=== PATIENT | male | born 1955 | race Caucasian/White ===

== ENCOUNTER 2024-06-20 09:12 | Outpatient (REF) | payer MEDICARE, BC, SELFPAY | END 2024-06-20 09:13 | disposition home or self-care (01) | LOC: HO.LNP 09:12 | PROVIDERS: PCP Internal Medicine; Visit Provider Physician Assistant | DX: Z13.89 Encounter for screening for other disorder (principal) | CPT/HCPCS: 87880; 99202 ==

== ENCOUNTER 2024-06-20 09:12 | Outpatient (AMB) | payer MEDICARE, BC, SELFPAY ==
--- NOTE | 2024-06-20 09:21 | AM.OFFWIN_ITS ---
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 - Upper Respiratory Infection symptoms b olga lidia four days ago, including headaches, sore throat, and cough. - Patient experienced a maximum recorded fever of 100?F but no chills, nausea, vomiting, or diarrhea. - There is a noted difficulty in achievi ng restful sleep due to persistent coughing. - Absence of pulmonary conditions such a s COPD, asthma or a history of smoking. - He has experienced occasional ear infe ctions in the past during his younger years. - Reports difficulty in maintaining prop er hydration and nutrition. - His son exhibits early signs of simila r illness. Physical Exam General: Cooperative, healthy appearing, comfortable and no acute distress Orientation/consciousness: Patient oriented x3 Limitations: No limitations Head: Normal to inspection Ears: Hearing grossly normal bilaterally, external ears, TM's small purulent effusions bilaterally with erythema and slight bulging Nose: Normal external nose present, Normal nares present and No nasal discharge present Face and sinus: Normal facial exam and Yes sinuses nontender Mouth: Normal oral and palatal mucosa present and moist mucous membranes Throat: Yes tonsils normal, Yes uvula midline. Posterior oropharynx erythema Eyes: Appearance normal, both eyes and all related structures Neck: Normal visual inspection Respiratory: Clear to auscultation bilaterally. Normal respiratory effort, able to speak in complete sentences, Actively coughing, no respiratory distress, not tachypneic, no tripod positioning and no use of accessory muscles Cardiovascular: Regular rate and rhythm. Normal S1 and S2 Skin: No rashes or lesions noted Neuro: Patient oriented x3 Extremities: Normal to inspection and Yes no clubbing, cyanosis or edema Review of Systems Const All systems reviewed & are unremarkable except as noted in HPI and below Physical Exam Vital Signs: Last Vital Signs Temp 97.5 F 06/20/24 09:22 Pulse 89 06/20/24 09:22 BP 112/80 06/20/24 09:22 Pulse Ox 98 06/20/24 09:22 Oxygen Delivery Method Room Air 06/20/24 09:22 BMI result Body Mass Index 37.3 Assessment & Plan Assessment & Plan (1) Otitis media: Code(s): H66.90 - Otitis media, unspecified, unspecified ear Qualifiers: Otitis media type: suppurative Chronicity: acute Laterality: bilateral Recurrence: non-recurrent Spontaneous tympanic membrane rupture: without spontaneous rupture Qualified Code(s): H66.003 - Acute suppurative otitis media without spontaneous rupture of ear drum, bilateral Plan: Rapid strep in office is negative. During the consultation, I focused on the patient's symptoms consistent with an Upper Respiratory Infection and apparent signs of early bilateral Otitis Media. Diagnostic testing has been initiated to exclude COVID-19, Influenza, and RSV as possible etiologies. Considering the ear presentation, an antibiotic regimen of amoxicillin was prescribed to treat the suspected bacterial nature of the ear infection. For nighttime cough control, I have prescribed Tessalon Perles and suggested the use of Mucinex to manage daytime symptoms. I emphasized the importance of maintaining proper hydration despite the reduced appetite and current feverish state. The patient has been informed about the medication pickup procedures and has agreed to follow the outlined plan. Patient was informed and verbally consented to the use of an ambient scribe for clinic note documentation during this visit (2) URI, acute: Code(s): J06.9 - Acute upper respiratory infection, unspecified Plan: as above Medications: New amoxicillin 875 mg PO Q12H 10 tabs 0RF benzonatate 200 mg PO TID PRN 14 caps 0RF cough Coding Level of Care Code New Pt Level 4 (79765) Diagnoses Non-recurrent acute suppurative otitis media of both ears without spontaneous rupture of tympanic membranes H66.003 Otitis media type: suppurative Chronicity: acute Laterality: bilateral Recurrence: non-recurrent Spontaneous tympanic membrane rupture: without spontaneous rupture URI, acute J06.9
[2024-06-20 09:22] VITALS: BP 112/80; PULSE 89; TEMP 36.4; O2SAT 98; BMI 37.3
== END 2024-06-20 09:57 | disposition home or self-care (01) ==
PROVIDERS: PCP Internal Medicine; Visit Provider Physician Assistant
DX: H66.003 Acute suppurative otitis media without spontaneous rupture of ear drum, bilateral (principal); J06.9 Acute upper respiratory infection, unspecified; Z13.9 Encounter for screening, unspecified

== ENCOUNTER 2024-06-20 13:28 | Outpatient (REF) | payer MEDICARE, BC, SELFPAY ==
[2024-06-20 14:23] LABS: Influenza A PCR NEGATIVE (Negative); Influenza B PCR NEGATIVE (Negative); Resp Syncy Virus RNA Qual PCR POSITIVE (Negative); SARS COV2 PCR INHOUSE NEGATIVE (Negative)
== END 2024-06-20 13:29 | disposition home or self-care (01) ==
LOC: HO.LAB 13:28
PROVIDERS: Visit Provider Physician Assistant
DX: J06.9 Acute upper respiratory infection, unspecified (principal); H66.003 Acute suppurative otitis media without spontaneous rupture of ear drum, bilateral
CPT/HCPCS: 0241U; 87880; 99202

== ENCOUNTER 2024-09-05 08:04 | Outpatient (AMB) | payer MEDICARE, BC, SELFPAY ==
[2024-09-05 08:13] VITALS: BP 146/80; PULSE 80; RESP 18; TEMP 36.8; O2SAT 97; BMI 39.5
--- NOTE | 2024-09-05 08:13 | MHC.OFFWIV ---
Intake Vital Signs 09/05/24 08:13 Height 6 ft Weight 291 lb BMI 39.5 BP 146/80 H Blood Pressure Location Lt brachial Position Sitting Respiration 18 Pulse 80 Pulse Source Pulse Oximeter Temp 98.2 F Temp Source Oral Pulse Oximetry (%) 97 Oxygen Delivery Method Room Air Intake Visit Reasons: EP Back pain Intake Note: pt is here for her c.o lower left back pain due to lifting weights since 4days Patient Tobacco Use Status: Never used Tobacco Accompanied by: Self / Same As Patient Allergies No Known Allergies Allergy (Verified 09/05/24 08:13) Do you need a note to return to daycare/school/sports/work: No HPI HPI Comments History of Present Illness Details This is a 69-year-old male with past medical history of hypertension, hyperlipidemia, [id number] diabetes presenting for evaluation of left-sided low back pain that he has had for the past 4 days. Patient states he was moving heavy weights in his basement through a doorway when he twisted while holding weights in both hands. Patient states he was curling utilizing his biceps muscles thereafter and noted pain in his left low back since that time. Patient used an [id number] pain patch x1 without relief of his discomfort. Patient describes his pain as an aching sensation that does not radiate into his buttock, lower extremity, flank or abdomen. PFSH Social History Patient Tobacco Use Status: Never used Tobacco Review of Systems Const All systems reviewed & are unremarkable except as noted in HPI and below Reports no additional complaints Eyes Reports no additional complaints ENT Reports no additional complaints Card Reports no additional complaints Resp Reports no additional complaints GI Reports no additional complaints Reports no additional complaints, Denies dysuria, Denies flank pain and Denies urinary urgency Musc Reports back pain (left low back pain) Skin/Breast Reports system reviewed and no additional complaints, except as documented Neuro Reports no additional complaints Psych Reports no additional complaints Endo Reports no additional complaints Krzysztof/Lymph Reports no additional complaints Aller/Immun Reports no additional complaints Physical Exam Vital Signs: BMI result Body Mass Index 39.5 Const General: cooperative, comfortable, well developed, alert, awake and Physically active; No acute distress Nutritional Appearance: obese Orientation/consciousness: patient oriented x3 Limitations: no limitations General: Yes no CVA tenderness Back/Spine/Pelvis Back: no CVA tenderness Cervical Spine: normal cervical lordosis and No cervical muscular tenderness Thoracic/Lumbar Spine: No thoraco-lumbar ROM normal, straight leg raise negative bilaterally, paraspinal muscle tenderness on the left in the upper thoracic and in the mid lumbar, No thoracic spinal tenderness, No lumbar spinal tenderness and No straight leg raise positive Sacroiliac joints: bilaterally nontender Skin General skin exam: no rashes or lesions noted Neuro General: patient oriented x3 Psych Appearance: grossly normal Mental Status: mental status grossly normal Insight: Good insight present (Psych) Judgement: Good judgement present (Psych) Assessment & Plan Assessment & Plan (1) Lumbar strain: Comment: Examination is consistent with a left lumbar strain, there is no midline or sciatic notch tenderness. Imaging is deferred at this time. Code(s): S39.012A - Strain of muscle, fascia and tendon of lower back, initial encounter Qualifiers: Encounter type: initial encounter Qualified Code(s): S39.012A - Strain of muscle, fascia and tendon of lower back, initial encounter Plan: Naprosyn 500 mg q.12 hours, methocarbamol q.8 hours times 7-10 days. Patient is also encouraged to obtain a heating pad to use at 20 minute intervals. Medications: New naproxen (Naprosyn) 500 mg PO BID 20 tabs 0RF methocarbamol 750 mg PO Q8H 30 tabs 0RF Coding Level of Care Code Est Pt Level 3 (92735) Diagnoses Strain of lumbar region, initial encounter S39.012A Encounter type: initial encounter Time Spent (min) 20
== END 2024-09-05 09:32 | disposition home or self-care (01) ==
PROVIDERS: PCP Internal Medicine; Visit Provider Physician Assistant
DX: S39.012A Strain of muscle, fascia and tendon of lower back, initial encounter (principal)

== ENCOUNTER → 2024-09-05 08:04 | Outpatient (BNVA) | payer MEDICARE, BC, SELFPAY | PROVIDERS: PCP Internal Medicine; Visit Provider Physician Assistant | DX: S39.012A Strain of muscle, fascia and tendon of lower back, initial encounter (principal) | CPT/HCPCS: 99212 ==

== ENCOUNTER 2025-04-07 09:47 | Outpatient (AMB) | payer MEDICARE, BC, SELFPAY ==
--- OUTSIDE RECORDS SUMMARY | 2025-04-07 09:51 | XMS_ITS | Clinical Summary ---
Author Organization [address] Address [address] [place] [address] [place] [address] Phone Care Team Providers Care Coal Miner Name Role Phone Иван Seo Primary Care Provider [phone] Allergies No known active allergies Medications blood-glucose meter (FREESTYLE LITE METER MISC) Use to check blood sugar once daily 4 Active FREESTYLE LANCETS MISC Use to check blood sugar once daily 4 Active dorzolamide (TRUSOPT) 2 % ophthalmic solution INSTILL 1 DROP INTO BOTH EYES TWICE A DAY 4 Active finasteride (PROSCAR) 5 mg tablet Take 1 Tablet by mouth daily. 4 Active latanoprost (XALATAN) 0.005 % ophthalmic solution 2 Active lisinopriL (PRINIVIL,ZESTR IL) 10 mg tablet Take 1 Tablet by mouth daily. 4 Active timolol (TIMOPTIC) 0.5 % ophthalmic solution INSTILL 1 DROP INTO BOTH EYES TWICE A DAY 4 Active dorzolamide-ivelisse oloL (COSOPT) 22.3-6.8 mg/mL ophthalmic solution Administer 1 drop into both eyes 2 (two) times a day. 5 Active simvastatin (ZOCOR) 40 mg tablet TAKE 1 TABLET BY MOUTH EVERYDAY AT BEDTIME 90 tablet 1 5 Active blood sugar diagnostic (FreeStyle Lite Strips) test strip USE TO CHECK BLOOD SUGAR ONCE DAILY 100 strip 5 5 Active Ozempic 0.25 mg or 0.5 mg (2 mg/3 mL) injection pen INJECT 0.25 MG INTO THE SKIN ONCE A WEEK FOR 28 DAYS, THEN 0.5 MG ONCE A WEEK FOR 180 DAYS. 2 mL 1 5 Active polyethylene glycol (Golytely) 236-22.74-6.74 -5.86 gram solution Take 4L by mouth once for one dose. May substitue any PEG. Starting at 2PM the day before your procedure drink 1 8oz glasses at your own pace until you complete half of the gallon. Finish 2nd half of the gallon at 8PM. 4000 mL 5 Active bisacodyL (DULCOLAX) 5 mg EC tablet Take 2 tablets by mouth right before beginning bowel prep. See instructions provided by the office 2 tablet 5 Active sildenafiL (VIAGRA) 100 mg tablet TAKE 1 TABLET BY MOUTH NEEDED AT LEAST 1 HOUR PRIOR TO SEXUAL RELATIONS 10 tablet 1 5 Active Active Problems Problem Noted Date Diagnosed Date Type 2 diabetes mellitus wit hout complication, without long-term current use of insulin ([facility] V24, [facility] V28) 08/10/2023 Obstructive sleep apnea 10/02/2020 Overview (05/25/2024): [facility] Home Sleep Apnea Test: Date 09/26/2020; Wt 300#; BMI 41; CATRACHITA (AHI) 7, AI 1; HI 5; Unclassified apneas 0; Obstructive apneas 6; Central apneas 0; Mixed apneas 0; hypopneas 22; average oxygen saturation 93% (lowest 84% with saturations <88% for 5% or more of study) - Obstructive Sleep Apnea - mild; mostly hypopneas with some obstructive apneas; with sleep related hypoventilation by 2020 home sleep apnea test. Colon polyps 12/26/2019 Overview (05/25/2024): Repeat colonoscopy in 2024 Lower urinary tract symptoms (LUTS) 08/25/2017 Essential hypertension 03/01/2017 Obesity, Class II, BMI 35-39.9 06/01/2013 Overview (05/25/2024): BMI 42.03 on 04/06/13. Erectile dysfunction 04/06/2013 Shoulder pain 10/15/2010 Overview (05/25/2024): Severe right shoulder degenerative arthropathy Claustrophobia 10/25/2008 Overview (05/25/2024): Cannot tolerate MRI. Hypercholesteremia 10/25/2008 Encounters Date Type Department Care Team Description 02/07/2025 8:45 AM EDT Anesthesia Event [facility] Endoscopy [address] [place] [address] Иван Lake DO 02/07/2025 8:02 AM EDT - 02/07/2025 11:59 PM EDT Hospital Encounter [facility] Endoscopy [address] [place] [address] Gregg English MD Dusza, Sara, CRNA History of colon polyps Discharge Disposition: Home or Self Care from Last 3 Months Immunizations Immunization Administration Dates Next Due Influenza Quadravalent, MDCK , 0.5ml, preservative free (Flucelvax) 6mo and older 02/13/2020 Pneumococcal conjugate 20 va lent (Prevnar 20, PCV 20) 2mo and older 07/13/2023 Pneumococcal polysaccharide 23 valent (Pneumovax 23) 2yo and older 03/16/2022,08/20/2020 Td Tetanus diptheria (Tdvax) 7yo and older 10/07,04/21/2004 Td, Unspecified 04/21/2004 Tdap Tetanus diptheria acell ular pertussis (Boostrix; Adacel) 7yo and older 08/17/2011 Zoster Live 01/14/2016 Surgical History Surgery Date Site/Laterality Comments COLONOSCOPY 11/23/08 PROCEDURE: HISTORICAL COLONOSCOPY; COMMENT: normal; repeat in ten years OTHER SURGICAL HISTORY PROCEDURE: HISTORY OTHER; COMMENT: left knee arthroscopic OTHER SURGICAL HISTORY 2015 Right PROCEDURE: HISTORY OTHER; COMMENT: total shoulder replacement dr lozoya COLONOSCOPY 08/09/2019 PROCEDURE: HISTORICAL COLONOSCOPY; COMMENT: polyp Medical History Medical History Date Comments Essential hypertension 03/01/2017 DX:Essent ial hypertension Type 2 diabetes mellitus wit hout complication, without long-term current use of insulin ([facility] V24, [facility] V28) 08/10/2023 DX:Type 2 diabetes mellitus without complication, without long-term current use of insulin (HCC) Essential hypertension 03/01/2017 Family History Medical History Relation Name Comments Coronary artery disease Brother 1 Diabetes Father Glaucoma Mother smoker Relation Name Status Comments Brother 1 Alive cabg Brother 2 Alive Brother 3 Alive Father (Age 72) Diabetes Mother (Age 62) Lung cance r Son 1 Alive Son 2 Alive Son 3 Alive Son 4 Alive Social History Tobacco Use Types Packs/Day Years Used Date Smoking Tobacco: Former Cigarettes 1 07/27/1968 - 06/14/1988 Smokeless Tobacco: Never Tobacco Cessation:Counseling Given: Not Answered Alcohol Use Standard Drinks/Week Comments Yes 0 (1 standard drink = 0.6 oz pur e alcohol) Interpersonal Safety Answer Date Record ed Physical Abuse Unrecognized value 02/07/2025 Verbal Abuse Unrecognized value 02/07/2025 Sex and Gender Information Value Date Recorded Sex Assigned at Not on file Legal Sex Male 10:15 AM EST Gender Identity Not on file Sexual Orientation Not on file Obstetrics History Last Filed Vital Signs Vital Sign Reading Time Taken Comments Blood Pressure 145/80 02/07/2025 9:19 AM EDT Pulse 75 02/07/2025 9:19 AM EDT Temperature 35.9 C (96.7 F) 02/07/2025 8:15 AM EDT Respiratory Rate 19 02/07/2025 9:19 AM EDT Oxygen Saturation 96% 02/07/2025 9:19 AM EDT Inhaled Oxygen Concentration - - Weight 125 kg (275 lb) 01/31/2025 12:00 PM EDT Height 182.9 cm (6') 01/31/2025 12:00 PM EDT Body Mass Index 37.3 01/31/2025 12:00 PM EDT Plan of Treatment Upcoming Encounters Date Type Department Care Team (Late st Contact Info) Description 07/17/2025 8:00 AM EST Office Visit Adult Medicine [address] [phone] Иван Seo PA [address] [place] [phone] Health Maintenance Due Date Last Done Comments Zoster Vaccines (2 of 3) 03/10/2016 01/14/2016 Social Influencers of Health Screening 05/23/2022 Depression Screening 06/14/2024 08/10/2023 Medicare Annual Wellness Visit 08/10/2024 08/10/2023 Diabetes: Annual Foot Exam 10/19/2024 10/20/2023 COVID-19 Vaccine (3 - season) 2025 11/05/2020, 10/15/2020 Influenza Vaccine (#1) 2025 02/13/2020 Diabetes: Blood Sugar Control Test (HGBA1C) 07/04/2025 01/01/2025, 10/03/2024, 05/09/2024, Additional history exists Diabetes: Annual Retina Eye Exam 09/27/2025 09/27/2024, 2023 Diabetes: Annual Urine Albumin-Creatinine Ratio (uACR) 01/01/2026 01/01/2025, 10/03/2024, 05/09/2024, Additional history exists Diabetes: Annual GFR (Glomerular Filtration Rate) 01/01/2026 01/01/2025, 10/03/2024, 05/09/2024, Additional history exists Hypertension/CHF/CAD Annual BMP Blood Test 01/01/2026 01/01/2025, 10/03/2024, 05/09/2024, Additional history exists Falls Risk Assessment 02/07/2026 02/07/2025, 024 Cholesterol Screening (Lipid Panel) 01/01/2030 01/01/2025, 10/03/2024, 05/09/2024, Additional history exists Colorectal Cancer Screening: Colonoscopy 02/07/2030 02/07/2025, 08/09/2019 RSV Immunization Adult Patients (1 - 1-dose 75+ series) 2030 DTaP,Tdap,and Td Vaccines (5 - Td or Tdap) 10/08/2031 10/07/2021, 08/17/2011, 04/21/2004, Additional history exists Hepatitis C Screening Completed 07/22/2018 Abdominal Aortic Aneurysm (AAA) Screen Completed 09/13/2020 Pneumococcal Vaccine: 50+ Years Completed 07/13/2023, 03/16/2022, 08/20/2020 HIB Vaccines Aged Out No longer eligi ble based on patient's age to complete this topic HPV Vaccines Aged Out No longer eligi ble based on patient's age to complete this topic Hepatitis A Vaccines Aged Out No long er eligible based on patient's age to complete this topic Hepatitis B Vaccines Aged Out No long er eligible based on patient's age to complete this topic IPV Vaccines Aged Out No longer eligi ble based on patient's age to complete this topic MMR Vaccines Aged Out No longer eligi ble based on patient's age to complete this topic Meningococcal ACWY Vaccine Aged Out N o longer eligible based on patient's age to complete this topic Meningococcal B Vaccine Aged Out No l onger eligible based on patient's age to complete this topic RSV Immunization Patients Under 20 months Aged Out No longer eligible based on patient's age to complete this topic Varicella Vaccines Aged Out No longer eligible based on patient's age to complete this topic Procedures Procedure Name Priority Date/Time Associated Diagnosis Comments COLONOSCOPY Routine 02/07/2025 8:58 AM EDT History of colon polyps MICROALBUMIN CREATININE URINE RATIO Routine 01/01/2025 9:19 AM EDT Screening for malignant neoplasm of colon Type 2 diabetes mellitus without complication, without long-term current use of insulin ([facility] V24, [facility] V28) Essential hypertension Hypercholesteremia Lower urinary tract symptoms (LUTS) Obstructive sleep apnea Polyp of colon, unspecified part of colon, unspecified type COMPREHENSIVE METABOLIC PANEL Routine 01/01/2025 9:19 AM EDT Screening for malignant neoplasm of colon Type 2 diabetes mellitus without complication, without long-term current use of insulin ([facility] V24, [facility] V28) Essential hypertension Hypercholesteremia Lower urinary tract symptoms (LUTS) Obstructive sleep apnea Polyp of colon, unspecified part of colon, unspecified type HEMOGLOBIN A1C Routine 01/01/2025 9:19 AM EDT Screening for malignant neoplasm of colon Type 2 diabetes mellitus without complication, without long-term current use of insulin ([facility] V24, [facility] V28) Essential hypertension Hypercholesteremia Lower urinary tract symptoms (LUTS) Obstructive sleep apnea Polyp of colon, unspecified part of colon, unspecified type LIPID PANEL WITH REFLEX TO DIRECT LDL Routine 01/01/2025 9:19 AM EDT Screening for malignant neoplasm of colon Type 2 diabetes mellitus without complication, without long-term current use of insulin ([facility] V24, [facility] V28) Essential hypertension Hypercholesteremia Lower urinary tract symptoms (LUTS) Obstructive sleep apnea Polyp of colon, unspecified part of colon, unspecified type DIABETES FOOT EXAM Routine 10/20/2023 DEPRESSION SCREENING Routine 08/10/2023 DIABETES EYE EXAM Routine 2023 FALLS RISK ASSESSMENT Routine 07/13/2023 ABDOMINAL AORTIC ANEURYSM SCRREN Routine 09/13/2020 HEPATITIS C SCREENING Routine 07/22/2018 from Last 3 Months or Most Recently Relevant to Health Maintenance Results * COLONOSCOPY Anesthesia - MAC; [facility] ENDOSCOPY (02/07/2025 8:58 AM EDT) Anatomical Region Laterality Modality Endoscopy 02/07/2025 8:39 AM EDT Impressions 02/07/2025 8:59 AM EDT - Diverticulosis in the entire examined colon. - Non-bleeding internal hemorrhoids. - The examination was otherwise normal on direct and retroflexion views. - No specimens collected. Recommendation: - Discharge patient to home. - High fiber diet. - Continue present medications. - Repeat colonoscopy in 5 years for surveillance. - Return to GI office PRN. Narrative 02/07/2025 8:59 AM EDT [facility] GI Patient Name: Yordan Lazaro Jr Procedure Date: 02/07/2025 8:39 AM Date of : 1955 Age: 69 Room: ROOM 15 Gender: Male Note Status: Finalized Attending MD: Gregg English MD, Procedure Date No Time: 02/07/2025 Procedure: Colonoscopy Indications: High risk colon cancer surveillance: Personal history of colonic polyps Providers: Gregg English MD Referring MD: Gregg English MD Medicines: Monitored Anesthesia Care Complications: No immediate complications. Estimated Blood Loss: Estimated blood loss: none. Procedure: Pre-Anesthesia Assessment: - ASA Grade Assessment: III - A patient with severe systemic disease. - After reviewing the risks and benefits, the patient was deemed in satisfactory condition to undergo the procedure. After I obtained informed consent, the scope was passed under direct vision. Throughout the procedure, the patient's blood pressure, pulse, and oxygen saturations were monitored continuously.The Colonoscope was introduced through the anus and advanced to the cecum, identified by appendiceal orifice and ileocecal valve. The colonoscopy was performed without difficulty. The patient tolerated the procedure well. The quality of the bowel preparation was good. Findings: Scattered small and large-mouthed diverticula were found in the entire colon. Non-bleeding internal hemorrhoids were found during retroflexion. The hemorrhoids were small. The exam was otherwise without abnormality on direct and retroflexion views. Procedure Code(s): --- Professional --- G0105, Colorectal cancer screening; colonoscopy on individual at high risk Diagnosis Code(s): --- Professional --- Z86.010, Personal history of colonic polyps CPT copyright 2020 [employer]. All rights reserved. The codes documented in this report are preliminary and upon splunk dashboard developer review may be revised to meet current compliance requirements. Gregg English MD 02/07/2025 8:59:54 AM This report has been signed electronically.Gregg English MD Number of Addenda: 0 Note Initiated On: 02/07/2025 8:39 AM Scope In: Scope Out: Endoscopy Department at [facility] - [address] [place] [phone] Procedure Note Gregg English MD - 02/07/2025 [facility] GI Patient Name: Yordan Lazaro Jr Procedure Date: 02/07/2025 8:39 AM Date of : 1955 Age: 69 Room: ROOM 15 Gender: Male Note Status: Finalized Attending MD: Gregg English MD, Procedure Date No Time: 02/07/2025 Procedure: Colonoscopy Indications: High risk colon cancer surveillance: Personalhistory of colonic polyps Providers: Gregg Egnlish MD Referring MD: Gregg English MD Medicines: Monitored Anesthesia Care Complications: No immediate complications. Estimated Blood Loss: Estimated blood loss: none. Procedure: Pre-Anesthesia Assessment: - ASA Grade Assessment: III - A patient with severe systemic disease. - After reviewing the risks and benefits, thepatient was deemed in satisfactory condition to undergo the procedure. After I obtained informed consent, the scope was passed under direct vision. Throughout theprocedure, the patient's blood pressure, pulse, and oxygen saturations were monitored continuously.The Colonoscope was introduced through the anus and advanced to the cecum, identified by appendiceal orifice and ileocecal valve. The colonoscopy was performed without difficulty. The patient tolerated the procedure well. The quality of the bowel preparation was good. Findings: Scattered small and large-mouthed diverticula were found in the entire colon. Non-bleeding internal hemorrhoids were found during retroflexion. The hemorrhoids were small. The exam was otherwise without abnormality ondirect and retroflexion views. Procedure Code(s): --- Professional --- G0105, Colorectal cancer screening; colonoscopy on individual at high risk Diagnosis Code(s): --- Professional --- Z86.010, Personal history of colonic polyps CPT copyright 2020 [employer]. All rights reserved. The codes documented in this report are preliminary and upon splunk dashboard developer reviewmay be revised to meet current compliance requirements. Gregg English MD 02/07/2025 8:59:54 AM This report has been signed electronically.Gregg English MD Number of Addenda: 0 Note Initiated On: 02/07/2025 8:39 AM Scope In: Scope Out: Endoscopy Department at [facility] - [address] [place] [phone] IMPRESSION: - Diverticulosis in the entire examined colon. - Non-bleeding internal hemorrhoids. - The examination was otherwise normal on directand retroflexion views. - No specimens collected. Recommendation: - Discharge patient to home. - High fiber diet. - Continue present medications. - Repeat colonoscopy in 5 years for surveillance. - Return to GI office PRN. Gregg English MD GI~PROCEDURE ORDERABLES Final Result * Lipid panel with reflex to direct LDL (01/01/2025 9:19 AM EDT) Cholesterol 159 0 - 200 mg/dL LAB CHEMISTRY METHOD 01/01/2025 2:17 PM EDT [facility] Triglycerides 140 0 - 150 mg/dL LAB CHEMISTRY METHOD 01/01/2025 2:17 PM EDT [facility] HDL 59 >=40 mg/dL LAB CHEMISTRY METHOD 01/01/2025 2:17 PM EDT [facility] LDL Calculated 72 0 - 100 mg/dL LAB CHEMISTRY METHOD 01/01/2025 2:17 PM EDT [facility] VLDL Cholesterol Navid 28 mg/dL LAB CHEMISTRY METHOD 01/01/2025 2:17 PM EDT [facility] Non HDL Chol. (LDL+VLDL) 100 <145 mg/dL LAB CHEMISTRY METHOD 01/01/2025 2:17 PM EDT [facility] Chol/HDL Ratio 2.7 0.0 - 4.4 LAB CHEMISTRY METHOD 01/01/2025 2:17 PM EDT [facility] Blood Venous blood specimen / Unknown Venipuncture / Unknown 01/01/2025 9:19 AM EDT 01/01/2025 9:19 AM EDT Иван CASAS LAB BLOOD ORDERABLES Sarah l Result [facility] [address] [place] [address], [place] [phone] * Microalbumin creatinine urine ratio (01/01/2025 9:19 AM EDT) Creatinine, Urine 139.0 mg/dL LAB CHEMISTRY METHOD 01/01/2025 11:31 AM EDT [facility] Microalb, Ur 7.6 0.0 - 29.0 mg/L LAB CHEMISTRY METHOD 01/01/2025 11:31 AM EDT [facility] Microalb/Creat Ratio 5 <30 mg/g creat LAB CHEMISTRY METHOD 01/01/2025 11:31 AM EDT [facility] Urine Urine specimen obtained by clean catch procedure / Unknown Non-blood Collection / Unknown 01/01/2025 9:19 AM EDT 01/01/2025 9:19 AM EDT Иван CASAS LAB URINE ORDERABLES Sarah l Result Performing Organization Address City/[facility]/ZIP Co de Phone Number [facility] [address] [place] [address], [place] [phone] * Hemoglobin A1c (01/01/2025 9:19 AM EDT) Hemoglobin A1C 5.8 <6.5 % LAB CHEMISTRY METHOD 01/01/2025 11:27 AM EDT [facility] Mean Bld Glu Estim. 120 mg/dL LAB CHEMISTRY METHOD 01/01/2025 11:27 AM EDT [facility] Blood Venous blood specimen / Unknown Venipuncture / Unknown 01/01/2025 9:19 AM EDT 01/01/2025 9:19 AM EDT Иван CASAS LAB BLOOD ORDERABLES Sarah l Result [facility] [address] [place] [address], [place] [phone] * Comprehensive metabolic panel (01/01/2025 9:19 AM EDT) Sodium 135 133 - 145 mmol/L LAB CHEMISTRY METHOD 01/01/2025 2:17 PM EDT [facility] Potassium 4.8 3.5 - 5.5 mmol/L LAB CHEMISTRY METHOD 01/01/2025 2:17 PM [facility] Chloride 104 96 - 110 mmol/L LAB CHEMISTRY METHOD 01/01/2025 2:17 PM [facility] CO2 22 21 - 32 mmol/L LAB CHEMISTRY METHOD 01/01/2025 2:17 PM [facility] Anion Gap 9 3 - 11 LAB CHEMISTRY METHOD 01/01/2025 2:17 PM [facility] Glucose 96 70 - 100 mg/dL LAB CHEMISTRY METHOD 01/01/2025 2:17 PM [facility] BUN 10 5 - 25 mg/dL LAB CHEMISTRY METHOD 01/01/2025 2:17 PM [facility] Creatinine 0.90 0.70 - 1.30 mg/dL LAB CHEMISTRY METHOD 01/01/2025 2:17 PM [facility] eGFR 92 >=60 mL/min/1. 73m2 LAB CHEMISTRY METHOD 01/01/2025 2:17 PM [facility] Comment:Calculation based on the Chronic Kidney Disease Epidemiology Collaboration (CKD-EPI) equation refit without adjustment for race. BUN/Creatinine Ratio 11.1 LAB CHEMISTRY METHOD 01/01/2025 2:17 PM [facility] Calcium 10.3 8.5 - 10.5 mg/dL LAB CHEMISTRY METHOD 01/01/2025 2:17 PM [facility] AST (SGOT) 26 10 - 42 unit/L LAB CHEMISTRY METHOD 01/01/2025 2:17 PM [facility] ALT (SGPT) 43 10 - 60 unit/L LAB CHEMISTRY METHOD 01/01/2025 2:17 PM [facility] Alkaline Phosphatase 48 42 - 121 unit/L LAB CHEMISTRY METHOD 01/01/2025 2:17 PM [facility] Total Protein 7.7 6.0 - 8.0 g/dL LAB CHEMISTRY METHOD 01/01/2025 2:17 PM EDT [facility] Albumin 4.6 3.2 - 5.0 g/dL LAB CHEMISTRY METHOD 01/01/2025 2:17 PM EDT [facility] Total Bilirubin 0.5 0.0 - 1.4 mg/dL LAB CHEMISTRY METHOD 01/01/2025 2:17 PM EDT [facility] Blood Venous blood specimen / Unknown Venipuncture / Unknown 01/01/2025 9:19 AM EDT 01/01/2025 9:19 AM EDT Иван CASAS LAB BLOOD ORDERABLES Sarah l Result [facility] [address] [place] [address], * Diabetes Foot Exam (10/20/2023) [facility] Diabetes: Annual Foot Exam Abstracted [facility] Provider HEALTH MAINTENANCE Final Result * Depression Screening (08/10/2023) [facility] Depression Screening Abstracted [facility] Provider HEALTH MAINTENANCE Final Result * Diabetes Eye Exam (2023) [facility] Diabetes: Annual Retina Eye Exam Abstracted [facility] Provider HEALTH MAINTENANCE Final Result * Falls Risk Assessment (07/13/2023) [facility] Falls Risk Assessment Abstracted [facility] Provider HEALTH MAINTENANCE Final Result * Abdominal Aortic Aneurysm Screen (09/13/2020) [facility] Abdominal Aortic Aneurysm (AAA) Screening Abstracted Anatomical Region Laterality Modality Other [facility] Provider HEALTH MAINTENANCE Final Result * Hepatitis C Screening (07/22/2018) [facility] Hepatitis C Screening Abstracted us Historical Provider HEALTH MAINTENANCE Final Result from Last 3 Months or Most Recently Relevant to Health Maintenance Insurance MEDICARE [facility] Care Teams Coal Miner Relationship Specialty Start Date End Date Иван Seo PA [address] [place] [address] PCP - General Internal Medicine 08/15/21
--- NOTE | 2025-04-07 10:01 | AM.OFFWIN_ITS ---
Intake Vital Signs 04/07/25 10:02 Height 6 ft BMI Reason not done Patient refused/unable BP 132/80 Blood Pressure Location Lt brachial Position Sitting Pulse 79 Pulse Source Pulse Oximeter Pulse Oximetry (%) 98 Intake Visit Reasons: EP Stiff neck Intake Note: pt is here for stiff neck, ongoing for 1 month Patient Tobacco Use Status: Never used Tobacco Allergies No Known Allergies Allergy (Verified 04/07/25 10:39) Medication List - Last Reconciled 04/07/25 by CURTIS Quesada- lisinopril 10 mg PO DAILY semaglutide (Ozempic) mg subcut simvastatin 40 mg PO BEDTIME Do you need a note to return to daycare/school/sports/work: No HPI HPI Comments History of Present Illness Details History of Present Illness The patient is a 69-year-old male presenting with stiff neck. 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 - Symptoms affect sleep, concentrated ri ght-side muscle tightness. - Denies fever, headaches, or nausea. - Prior management included topical heat use, minimal benefits. Hot showers have helped. Review of Systems - Musculoskeletal: Reports neck stiffnes s; Denies other pain or swelling. - Neurology: Denies headaches, dizziness , or visual changes. - General: Denies fever or chills. - Gastrointestinal: Denies nausea or vom iting. Physical Exam General: Well developed, well nourished, in no acute distress. Appears stated age. Head: Normocephalic, atraumatic. Eyes: Pupils are equal, round and reactive to light and accommodation. Conjunctivae are clear. EOMI Neck: Restricted ROM d/t pain; no c spine tenderness; over R sternoclenoid mastoid muscle and into the trap on the R side there is pain & observable muscle spasm. Overlying skin is intact w/o a rash. Lungs: Speaking in full sentences Neuro: Grossly normal neuro exam Discussion Notes I discussed with the patient the likely diagnosis of Cervical Muscle Strain caused by repetitive stress from his occupational activities. I recommended treatment with Baclofen, a muscle relaxant, advising caution due to potential sedation. Meloxicam, an anti-inflammatory, was suggested to reduce inflammation and alleviate pain. I explained the benefits of warm, moist heat to help loosen muscle tightness beyond dry heat options. We discussed the importance of avoiding activities that exacerbate his condition, like looking upward or lifting overhead. I advised that persistent or worsening symptoms could require interior plant caretaker or physical therapy. Follow-up guidance and potential need for additional treatments if symptoms persist were shared. Patient was given time to ask questions. All questions were answered to their satisfaction. Assessment and Plan 1. Cervical Muscle Strain - Likely cervical strain due to repetiti ve work-related activity. - Prescribed Baclofen, caution on sedati on. - Recommend Meloxicam for inflammation, daily use. - Advocated warm moist heat over dry hea t for muscle relief. - Advised activity modification to avoid exacerbation. Patient Instructions - Take prescribed Baclofen and Meloxicam as directed. - Use a warm, moist towel or hot showers to relieve muscle tightness. - Avoid movements that strain the neck. - Seek follow-up care if symptoms persis t or worsen. Consent Patient was informed and verbally consented to the use of an ambient scribe for clinic note documentation during this visit. [facility] Social History Patient Tobacco Use Status: Never used Tobacco Physical Exam Vital Signs: Last Vital Signs Pulse 79 04/07/25 10:02 BP 132/80 04/07/25 10:02 Pulse Ox 98 04/07/25 10:02 Assessment & Plan Assessment & Plan (1) Cervical muscle strain: Code(s): S16.1XXA - Strain of muscle, fascia and tendon at neck level, initial encounter Qualifiers: Encounter type: initial encounter Qualified Code(s): S16.1XXA - Strain of muscle, fascia and tendon at neck level, initial encounter Plan . Medications: New baclofen 10 mg PO TID PRN 15 tabs 0RF muscle spasm meloxicam 15 mg PO DAILY 14 tabs 0RF Coding Level of Care Code Est Pt Level 3 (63661) Diagnoses Strain of neck muscle, initial encounter S16.1XXA Encounter type: initial encounter
[2025-04-07 10:02] VITALS: BP 132/80; PULSE 79; O2SAT 98
== END 2025-04-07 11:10 | disposition home or self-care (01) ==
PROVIDERS: PCP Internal Medicine; Visit Provider Nurse Practitioner Family
DX: S16.1XXA Strain of muscle, fascia and tendon at neck level, initial encounter (principal)

== ENCOUNTER → 2025-04-07 09:47 | Outpatient (BNVA) | payer MEDICARE, BC, SELFPAY | PROVIDERS: PCP Internal Medicine; Visit Provider Nurse Practitioner Family | DX: S16.1XXD Strain of muscle, fascia and tendon at neck level, subsequent encounter (principal) | CPT/HCPCS: 99212 ==

== ENCOUNTER 2025-04-27 09:49 | Outpatient (AMB) | payer MEDICARE, BC, SELFPAY ==
[2025-04-27 09:52] VITALS: BP 136/84; PULSE 80; O2SAT 96; BMI 37.2
--- NOTE | 2025-04-27 09:52 | MHC.OFFWIV ---
Intake Vital Signs 04/27/25 09:52 Height 6 ft Weight 274 lb BMI 37.2 BP 136/84 Blood Pressure Location Lt brachial Position Sitting Pulse 80 Pulse Source Pulse Oximeter Pulse Oximetry (%) 96 Oxygen Delivery Method Room Air Intake Visit Reasons: EP back of neck and right side Intake Note: Patient presents c/o back of neck pain on right side since last night - was seen a month ago for the same thing. Patient Tobacco Use Status: Never used Tobacco Allergies No Known Allergies Allergy (Verified 04/27/25 09:55) Do you need a note to return to daycare/school/sports/work: No HPI HPI Comments History of Present Illness Details This is a 69-year-old male with a past medical history of hypertension and hyperlipidemia presenting for evaluation of right-sided neck pain that started last night. Patient states that he was here for similar reasons approximately 1 month ago. Patient has been helping his grandson clean out his house and has been feeling a trailer which requires him to look up repeatedly. Patient denies any overt injury or trauma to his neck or back. Patient states medications prescribed 1 month ago were very helpful for his discomfort PFSH Social History Patient Tobacco Use Status: Never used Tobacco Review of Systems Const All systems reviewed & are unremarkable except as noted in HPI and below Reports no additional complaints Eyes Reports no additional complaints ENT Reports neck pain Musc Reports as per HPI, Denies back pain, Denies arthralgias, Reports neck pain, Denies numbness and Denies tingling Skin/Breast Reports system reviewed and no additional complaints, except as documented Neuro Reports no additional complaints, Denies numbness and Denies tingling Psych Reports no additional complaints Physical Exam Vital Signs: Last Vital Signs Pulse 80 04/27/25 09:52 BP 136/84 04/27/25 09:52 Pulse Ox 96 04/27/25 09:52 Oxygen Delivery Method Room Air 04/27/25 09:52 BMI result Body Mass Index 37.2 Const General: cooperative, healthy appearing, comfortable, no acute distress, well developed, alert, awake and Physically active; No ill appearing Nutritional Appearance: average body habitus Orientation/consciousness: patient oriented x3 Limitations: no limitations Neck Neck: Yes normal visual inspection and Yes full ROM Back/Spine/Pelvis Cervical Spine: normal cervical lordosis, cervical ROM normal, No Lhermitte's sign positive, No loss of normal cervical lordosis, cervical muscular tenderness (right), No pain with cervical ROM, No Cervical spine scars present, No Cervical spine tenderness and No step off deformity Thoracic/Lumbar Spine: thoraco-lumbar ROM normal, No paraspinal muscle tenderness, No thoraco-lumbar ROM limited, No thoracic spinal tenderness and No lumbar spinal tenderness Skin General skin exam: no rashes or lesions noted Neuro General: patient oriented x3 Extrem Other: Sports Centre Manager strength equal bilaterally, ROM upper extremities intact bilaterally. Psych Appearance: grossly normal Mental Status: mental status grossly normal Insight: Good insight present (Psych) Judgement: Good judgement present (Psych) Assessment & Plan Assessment & Plan (1) Cervical muscle strain: Comment: Patient is evaluated. His most recent visit to the walk-in is also reviewed. Given his history coupled with his examination, imaging is deferred at this time. Code(s): S16.1XXA - Strain of muscle, fascia and tendon at neck level, initial encounter Qualifiers: Encounter type: initial encounter Qualified Code(s): S16.1XXA - Strain of muscle, fascia and tendon at neck level, initial encounter Plan: Meloxicam 15 mg once daily times 10 days, baclofen 10 mg 3 times daily. Patient is encouraged to follow up with his primary care physician to obtain a referral for physical therapy consultation as this is a repetitive injury for him. Medications: New meloxicam take once daily with food 15 mg PO DAILY 10 tabs 0RF baclofen 10 mg PO TID 30 tabs 0RF Coding Level of Care Code Est Pt Level 3 (13512) Diagnoses Strain of neck muscle, initial encounter S16.1XXA Encounter type: initial encounter Time Spent (min) 20
== END 2025-04-27 10:19 | disposition home or self-care (01) ==
PROVIDERS: PCP Internal Medicine; Visit Provider Physician Assistant
DX: S16.1XXA Strain of muscle, fascia and tendon at neck level, initial encounter (principal)

== ENCOUNTER → 2025-04-27 09:49 | Outpatient (BNVA) | payer MEDICARE, BC, SELFPAY | PROVIDERS: PCP Internal Medicine; Visit Provider Physician Assistant | DX: S16.1XXA Strain of muscle, fascia and tendon at neck level, initial encounter (principal); X58.XXXA Exposure to other specified factors, initial encounter; Y93.H9 Activity, other involving exterior property and land maintenance, building and construction; Y92.9 Unspecified place or not applicable | CPT/HCPCS: 99212 ==